=== PATIENT | female | born 1995 | race Two or more races ===

== ENCOUNTER 2018-08-08 11:26 | Emergency (ER) | payer MEDICAID ==
[~2018-08-08] VITALS: Ht 175.3 cm; Wt 82.3 kg
[2018-08-08 11:27] VITALS: BP 128/83
--- NOTE | 2018-08-08 12:02 | NUR ---
PT TO XRAY
--- NOTE | 2018-08-08 12:21 | NUR ---
PT BACK FROM XRAY. RIGHT LEG ELEVATED, ICE APPLIED. PT A&O, RESPS EVEN AND UNLABORED. AWAITING XRAY RESULTS AND DISPO.
--- NOTE | 2018-08-08 12:46 | NUR ---
KNEE IMMOBILIZER APPLIED, PT TOLERATED WELL. ED IS OUT OF CRUTCHES FOR MEDIUM ADULT, CRUTCHES ORDERED. PT TO BE DC'D ONCE CRUTCHES ARRIVE.
--- NOTE | 2018-08-08 13:00 | NUR ---
PT GIVEN DC INSTRUCTIONS AND SCRIPT, EDUCATED REGARDING NAPROXEN RX. PT GIVEN FITTED CRUTCHES AND EDUCATION, PT DEMONSTRATES APPROPRIATE USE. PT AMBULATED TO DC USING CRUTCHES. PT A&O, RESPS EVEN AND UNLABORED, NADN AT DC.
== END 2018-08-08 13:01 | disposition home or self-care (01) ==
LOC: ED 12:51
DX: G89.11 Acute pain due to trauma (principal); M25.561 Pain in right knee; M25.461 Effusion, right knee; W01.0XXA Fall on same level from slipping, tripping and stumbling without subsequent striking against object, initial encounter; Y93.89 Activity, other specified; Y92.89 Other specified places as the place of occurrence of the external cause; Y99.8 Other external cause status
CPT/HCPCS: 29505; 99283